=== PATIENT | female | born 1990 | race Caucasian/White ===

== ENCOUNTER 2025-05-17 11:59 | Emergency (ER) | payer OTHER, SELFPAY ==
[2025-05-17 12:08] VITALS: BP 149/97; PULSE 94; TEMP 37.1; O2SAT 98; BMI 31.1
--- NOTE | 2025-05-17 12:16 | XR_ITS ---
The [address] [address] Patient Name: OMA HAYS MRN: [id number] date: 1990 Sex: F Assigned Patient Location: ED.MAIN Current Patient Location: ED.MAIN Accession/Order Number: [id number] Exam Date: 05/17/2025 12:25 Report Date: 05/17/2025 13:41 At the request of: SEBASTIEN ARIAS MD Procedure: XR foot LT min 3V LEFT FOOT - 3 views CLINICAL HISTORY: Pain, known fracture COMPARISON: None FINDINGS: There is soft tissue swelling identified along the forefoot. No definite fracture or dislocation identified. XR/XR foot LT min 3V IMPRESSION: No definite fractures or dislocation.. Moderate forefoot soft tissue swelling. Correlation with prior imaging recommended. Impression dictated by: Jay Jay Issa M.D. 05/17/2025 1:41 PM Dictation Location: [place] [address] Electronically authenticated by: [id number] Y Date: 05/17/2025 13:41
--- NOTE | 2025-05-17 12:16 | XR_ITS ---
The [address] [address] Patient Name: OMA HAYS MRN: [id number] date: 1990 Sex: F Assigned Patient Location: ED.MAIN Current Patient Location: Accession/Order Number: [id number] Exam Date: 05/17/2025 12:25 Report Date: 05/17/2025 14:32 At the request of: SEBASTIEN ARIAS MD Procedure: XR ankle LT min 3V LEFT ANKLE - 3 views CLINICAL HISTORY: Pain, known fractures COMPARISON: None FINDINGS: No acute fractures or dislocation. There is overlapping of the fourth metatarsal base of fifth metatarsal although no definite fracture identified.. Correlate with outside imaging may beneficial. Soft tissues unremarkable. XR/XR ankle LT min 3V IMPRESSION: NO ACUTE OSSEOUS OSSEOUS FINDINGS. Impression dictated by: Jay Jay Issa M.D. 05/17/2025 2:32 PM Dictation Location: [place] [address] Electronically authenticated by: [id number] Y Date: 05/17/2025 14:32
--- NOTE | 2025-05-17 12:17 | ED.GENADUL1 ---
HPI HPI - General Adult General Chief complaint: Extremity Injury, Lower Stated complaint: lower extremity injury 04/11/2025 Time Seen by Provider: 05/17/25 12:09 Source: family Mode of arrival: Wheelchair Limitations: no limitations History of Present Illness HPI narrative: 34-year-old female presented to the emergency department for chief complaint of pain in her left foot and ankle. The patient has known fractures and injured this about 5 weeks ago. He has been seeing an orthopedist in [place] and last saw the orthopedist about 2 weeks ago. She is scheduled for an MRI in August. Related Data Allergies Allergy/AdvReac Type Severity Reaction Status Date / Time epinephrine Allergy Severe Anaphylaxis Verified 05/17/25 12:08 hydromorphone (From Dilaudid) Allergy Severe ITCHING Verified 05/17/25 12:08 ketorolac (From Toradol) Allergy Severe ITCHING Verified 05/17/25 12:08 morphine Allergy Unknown ITCHING Verified 05/17/25 12:08 Opioid HPI Opioid Management Most Recent Opioid Data: Last Pain Scale 10 Today, 12:08 Review of Systems ROS Narrative A ten point review of systems is negative except as noted above. PFSH PFSH Social History Little interest or pleasure in doing things: not at all Feeling down, depressed, or hopeless: not at all Exam Narrative Exam Narrative: Nurses note and vital signs reviewed General:The patient appears well and in no apparent distress.Patient is resting comfortably on cart. Skin:Warm, dry, no pallor noted.There is no rash noted. Head:Normocephalic, atraumatic Eye: Normal conjunctiva, no drainage Ears, Nose, Mouth, and Throat: oral mucosa is moist. Nares patent. Cardiovascular:Regular Rate and Rhythm Respiratory:Patient is in no distress, no accessory muscle use, lungs are clear to auscultation, no wheezing, rales or rhonchi Back:non-tender GI: Soft and nontender Musculoskeletal: There is a splint on the left lower leg. I have removed it. There is no break in the skin. Dorsalis pedis pulse 2+. No calf masses. Neurological:A&O, normal speech Psychiatric:Cooperative Constitutional Vital Signs, click to edit/add: Last Vital Signs Temp 98.8 F 05/17/25 12:08 Pulse 94 H 05/17/25 12:08 Resp 18 05/17/25 12:08 BP 149/97 H 05/17/25 12:08 Pulse Ox 98 05/17/25 12:08 O2 Del Method Room Air 05/17/25 12:08 Course Vital Signs Vital signs: Vital Signs Temperature 98.8 F 05/17/25 12:08 Pulse Rate 94 H 05/17/25 12:08 Respiratory Rate 18 05/17/25 12:08 Blood Pressure 149/97 H 05/17/25 12:08 Pulse Oximetry 98 05/17/25 12:08 Oxygen Delivery Method Room Air 05/17/25 12:08 Temperature 98.8 F 05/17/25 12:08 Pulse Rate 94 H 05/17/25 12:08 Respiratory Rate 18 05/17/25 12:08 Blood Pressure 149/97 H 05/17/25 12:08 Pulse Oximetry 98 05/17/25 12:08 Oxygen Delivery Method Room Air 05/17/25 12:08 Medical Decision Making MDM Narrative Medical decision making narrative: Today's x-rays of foot and ankle show no acute findings. He was advised. His splint was reapplied, application checked by me and found to be appropriate, he is neurovascularly intact. He is seeking a second opinion and was given the name of Dr. Toledo. Treatment diagnosis and follow-up were discussed with the patient. Differential Diagnosis Differential Diagnosis: Foot pain, fracture Imaging Data Foot and ankle x-rays: Radiologist's impression: ITS Impressions Foot X-Ray 05/17/25 12:16 IMPRESSION: No definite fractures or dislocation.. Moderate forefoot soft tissue swelling. Correlation with prior imaging recommended. Impression dictated by: Jay Jay Issa M.D. 05/17/2025 1:41 PM Dictation Location: [place] [address] Electronically authenticated by: [id number] Y Date: 05/17/2025 13:41 Discharge Plan Discharge Chief Complaint: Extremity Injury, Lower Clinical Impression: Foot pain, left Patient Disposition: Home, Self-Care Time of Disposition Decision: 13:53 Condition: Good Mode of Transportation: Private Vehicle Print Language: Cameroonian Instructions: Arthralgia (ED) Referrals: Physician,Non-Staff, MD [Primary Care Provider] - 1 week Klaus Toledo DPM [Physician, Podiatry]
--- OUTSIDE RECORDS SUMMARY | 2025-05-17 12:34 | XMS_ITS | Encounter Summary ---
Author Organization [facility] Address [address], [address] [place] [address] Care Team Providers Care Ecommerce Project Manager Name Role Phone Unavailable Primary Care Provider Unavailabl e Encounter Details DateTypeDepartmentCare Team (Latest Contact Info)Nsgaetqpgbt59/25/2025bstract [facility] Part of [address] [phone] Liliam Esposito MA Social History Tobacco UseTypesPacks/DayYears UsedDateSmoking Tobacco: NeverSmokeless Tobacco: NeverAlcohol UseStandard Drinks/WeekCommentsNot Currently0 (1 standard drink = 0.6 oz pure alcohol)socialAUDIT-CAnswerDate RecordedQ1: How often do you have a drink containing alcohol?Never10/21/2024Q2: How many drinks containing alcohol do you have on a typical day when you are drinking?Patient does not drink 10/21/2024Q3: How often do you have six or more drinks on one occasion?Never 10/21/2024UDIT-CAnswerDate RecordedQ1: How often do you have a drink containing alcohol?Never04/22/2025Q2: How many drinks containing alcohol do you have on a typical day when you are drinking?Patient does not drink04/22/2025Q3: How often do you have six or more drinks on one occasion?Never04/22/2025Interpersonal Safety Domain Source: IP Abuse ScreeningAnswerDate RecordedPhysical abuseDenies 10/21/2024Verbal hhcpsMbdpev90/13/2025Emotional snqweNjhruh29/13/2025Financial kqcibCjcbnp60/13/2025Sexual tpobgAmhrry91/13/2025CommentsNoSex and Gender InformationValueDate RecordedSex Assigned at EzziyQvgncc21/13/2025 10:48 PM EDTLegal KjzGwfc5710/21/2024 10:48 PM EDTGender WkofurnsInsg77/13/2025 10:48 PM EDTSexual OrientationNot on filedocumented as of this encounter Plan of Treatment DateTypeDepartmentCare Team (Latest Contact Info)Iwedjwhcphh01/04/2026 2:40 PM ESTOffice Visit [facility] Part of [address] [phone] Cyndy Linares MD [address] [place] [phone] Referral from PCP Bradycardiadocumented as of this encounter Visit Diagnoses Not on filedocumented in this encounter
--- OUTSIDE RECORDS SUMMARY | 2025-05-17 12:34 | XMS_ITS | Encounter Summary ---
Author Organization [facility] Address [address], [address] [place] [address] Care Team Providers Care Neurophysiological Technician Name Role Phone Unavailable Primary Care Provider Unavailabl e Reason for Referral * Eval and Treat (Routine) - AuthorizedSpecialtyDiagnoses / ProceduresReferred By ContactReferred To ContactCardiovascular Disease / Cardiology Diagnoses Bradycardia Darin Maddox APRN - CNP [address] [place] [address] Phone: tel: fax: Yoseph Juarez MD [address] [place] [address] Phone: tel: fax: Referral IDStatusReasonStart DateExpiration DateVisits RequestedVisits [id number] Specialty Services Required Scheduling Instructions [facility] The patient can be scheduled with any member of the group, including the provider with the first available appointments. Encounter Details DateTypeDepartmentCare Team (Latest Contact Info)Nzyvqxykubl44/25/2025Orders Only [facility] Part of [place] [phone] Darin Maddox APRN - CNP [address] [place] [address] Bradycardia (Primary Dx) Social History Tobacco UseTypesPacks/DayYears UsedDateSmoking Tobacco: NeverSmokeless [...] Source: IP Abuse ScreeningAnswerDate RecordedPhysical abuseDenies 10/21/2024Verbal tfejoUdxvde63/13/2025Emotional fmldnNfxhtk75/13/2025Financial jkluiUxwgts85/13/2025Sexual ncqjnXvejyb98/13/2025CommentsNoSex and Gender InformationValueDate RecordedSex Assigned at TgrwbOdvqzn40/13/2025 10:48 PM EDTLegal WlcCcea1510/21/2024 10:48 PM EDTGender AeeqlvwtEaru41/13/2025 10:48 PM EDTSexual OrientationNot on filedocumented as of this encounter Plan of Treatment DateTypeDepartmentCare Team (Latest Contact Info)Paptfyzbaly82/04/2026 2:40 PM ESTOffice Visit [facility] Part of [address] [phone] Cyndy Linares MD [address] [place] [address] [facility] [place] [address] Referral from PCP BradycardiaNameTypePriorityAssociated DiagnosesOrder Schedule Yoseph [place] MD, Cardiology, [place]inOutpatient ReferralRoutine Bradycardia Ordered: 05/05/2025documented as of this encounter Visit Diagnoses Diagnosis Bradycardia- Primary Other specified cardiac dysrhythmias documented in this encounter
--- OUTSIDE RECORDS SUMMARY | 2025-05-17 12:34 | XMS_ITS | Encounter Summary ---
Author Organization [facility] Address [address], [address] [place] [address] Care Team Providers Care Account Representative Name Role Phone Unavailable Primary Care Provider Unavailabl e Encounter Details DateTypeDepartmentCare Team (Latest Contact Info)Cnfbatvszky71/19/2025Orders Only [facility] Radiology [address] [place] [phone] Darin Maddox, SENIOR CARE PROVIDER - DISPATCH COORDINATOR [address] [place] [phone] Social History Tobacco UseTypesPacks/DayYears UsedDateSmoking Tobacco: NeverSmokeless [...] Source: IP Abuse ScreeningAnswerDate RecordedPhysical abuseDenies 10/21/2024Verbal wnrfzAkxkpl67/13/2025Emotional cduywGvlbzx75/13/2025Financial huwmwWcfrsx15/13/2025Sexual vwplfIylfns43/13/2025CommentsNoSex and Gender InformationValueDate RecordedSex Assigned at DkdjiGqwubm25/13/2025 10:48 PM EDTLegal VrdCxiu4410/21/2024 10:48 PM EDTGender WxreoplsQker48/13/2025 10:48 PM EDTSexual OrientationNot on filedocumented as of this encounter Plan of Treatment DateTypeDepartmentCare Team (Latest Contact Info)Odywolfgvqs71/04/2026 2:40 PM ESTOffice Visit [facility] Part of [address] [phone] Cyndy Linares MD [address] [place] [phone] Referral from PCP Bradycardiadocumented as of this encounter Visit Diagnoses Not on filedocumented in this encounter
--- OUTSIDE RECORDS SUMMARY | 2025-05-17 12:34 | XMS_ITS | Clinical Summary ---
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 Name Role Phone Unavailable Primary Care Provider Unavailabl e Allergies Active AllergyReactionsCriticalityNoted DateCommentsHydromorphoneItching 08/03/20169093ZoikqzguNpfopsah36/23/2017 lips swell up PejxwqxoLaltrnxi13/23/2017 lips swell up Medications MedicationSigDispense QuantityRefillsLast FilledStart DateEnd DateStatus levothyroxine (SYNTHROID) 50 MCG tablet Take 88 mcg by mouth DailyActive acetaminophen (TYLENOL) 500 MG tablet Take 1 tablet by mouth 3 times daily as needed for Pain 30 tablet 12/07/2022ctive Additional Information Patient not taking.Reported on 04/11/2025 lidocaine viscous hcl (XYLOCAINE) 2 % SOLN solution Take 10 mLs by mouth 3 times daily as needed for Irritation 100 mL 12/07/2022ctive Additional Information Patient not taking.Reported on 04/11/2025 naproxen (NAPROSYN) 500 MG tablet Take 1 tablet by mouth 2 times daily for 7 days 14 tablet 5Active ibuprofen (ADVIL;MOTRIN) 600 MG tablet Take 1 tablet by mouth 3 times daily as needed for Pain 30 tablet 5Active HYDROcodone-acetaminophen (NORCO) 5-325 MG per tablet Indications:Closed displaced fracture of anterior process of left calcaneus, initial encounterTake 1 tablet by mouth every 6 hours as needed for Pain for up to 3 days. Intended supply: 3 days. Take lowest dose possible to manage pain Max Daily Amount: 4 tablets 12 tablet Expired Encounters DateTypeDepartmentCare NfufFyzbdknkrzj08/25/2025Orders Only [facility] Part of [address] [phone] Darin Maddox APRN Mary WOOD Bradycardia (Primary Dx)05/05/2025bstract [facility] Part of [address] [phone] Liliam Esposito MA 04/30/2025Transcribe Orders [place] [facility] [address] [place], [place] [id number] Darin Maddox, WATER SOFTENER SERVICER AND INSTALLER - [place]INA Closed nondisplaced fracture of anterior process of left calcaneus, initial encounter (Primary Dx); Sprain of anterior talofibular ligament of left ankle, initial encounter 04/29/2025 6:27 PM EST - 05/01/2025 11:59 PM ESTHospital Encounter [facility] [place] [facility] [address] [place], [place] [id number] Nondisplaced fracture of anterior process of left calcaneus, initial encounter for closed fracture; Pain of left calf; Sprain of other ligament of left ankle, initial encounter Discharge Disposition: Home or Self Care04/29/2025Orders Only [facility] [place] [facility] [address] [place], [place] [id number] Darin Maddox APRN - NINA 04/29/2025Transcribe Orders [facility] [address] [place] [id number] Darin Maddox, WATER SOFTENER SERVICER AND INSTALLER - NINA Nondisplaced fracture of anterior process of left calcaneus, initial encounter for closed fracture (Primary Dx); Pain of left calf; Sprain of other ligament of left ankle, initial snaxlfmqw53/12/2025 9:59 PM EST - 04/22/2025 11:46 PM ESTEmer[facility] [address] [place] [id number] Armando Javier MD Closed displaced fracture of anterior process of left calcaneus, initial encounter (Primary Dx) Discharge Disposition: Home or Self Care04/22/20259099Uvtgti50/07/2025Transcribe Orders [facility] [address] [place] [address] Darin Maddox S, WATER SOFTENER SERVICER AND INSTALLER - HOUSETRAILER SERVICER Sprain of anterior talofibular ligament of left ankle, initial encounter (Primary Dx)04/11/2025 5:04 PM EDT - 04/11/2025 6:08 PM EDTEmerluisana [facility] [address] [place] [address] Sprain of left ankle, unspecified ligament, initial encounter (Primary Dx) Discharge Disposition: Home or Self Care04/11/2025Travelfrom Last 3 Months Social History Tobacco UseTypesPacks/DayYears UsedDateSmoking Tobacco: NeverSmokeless [...] Source: IP Abuse ScreeningAnswerDate RecordedPhysical abuseDenies 10/21/2024Verbal nvwmqVvqnbl33/13/2025Emotional gjmlwLuchid59/13/2025Financial nnvbvJdpphj22/13/2025Sexual hlvvwWzuhjn06/13/2025CommentsNoSex and Gender InformationValueDate RecordedSex Assigned at BrvndXrvfdc38/13/2025 10:48 PM EDTLegal KxjVdyn1910/21/2024 10:48 PM EDTGender EbcgfesgJttq34/13/2025 10:48 PM EDTSexual OrientationNot on file Last Filed Vital Signs Vital SignReadingTime TakenCommentsBlood Sqrfwipg340/7411 9:58 PM EST Aynea502604/22/2025 9:58 PM REAMmwfnghxuna35.5 ??C (97.7 ??F)04/22/2025 9:58 PM ESTRespiratory Vftw054206/22/2024 9:58 PM ESTOxygen Lzwfaglteq59%04/22/2025 9:58 PM ESTInhaled Oxygen Concentration--Cbvnfp73.1 kg (170 lb)04/11/2025 5:08 PM EDT Wqkhoj618.5 cm (5' 2 )04/11/2025 5:08 PM EDTBody Mass Index31.0904/11/2025 5:08 PM EDT Plan of Treatment DateTypeDepartmentCare Team (Latest Contact Info)Tibxvpftokb45/04/2026 2:40 PM ESTOffice Visit [facility] Part of [address] [phone] Cyndy Linares MD [address] [place] [phone] Referral from PCP BradycardiaHealth MaintenanceDue DateLast DoneComments DTaP/Tdap/Td vaccine (6 - Tdap), 02/08/1993, 11/27/1989, Additional history existsDepression Wtrqxo6610/16/2000Varicella vaccine (1 of 2 - 13+ 2-dose series)2001HIV ovcdru1110/17/2003Hepatitis C wxxjqq8410/16/2006 Hepatitis B vaccine (1 of 3 - 19+ 3-dose series)10/17/2007Pap smear2009 Cervical cancer ckznlw8510/16/2018HPV (without or with Pap)2018Flu vaccine (#1)5COVID-19 Vaccine ( - 2023- season)2025Hib vaccine Peevqlbxf66/31/1993, 10/10/1990HPV mcxcogvKocbjwovq75/29/2024, 07/09/2023, 05/08/2023Hepatitis A vaccineAged OutNo longer eligible based on patient's age to complete this topicMeningococcal (ACWY) vaccineAged OutNo longer eligible based on patient's age to complete this topicMeningococcal B vaccineAged OutNo longer eligible based on patient's age to complete this topicPneumococcal 0-49 years VaccineAged OutNo longer eligible based on patient's age to complete this topicPolio vaccineAged OutNo longer eligible based on patient's age to complete this topic Procedures Procedure NamePriorityDate/TimeAssociated DiagnosisCommentsVAS DUP LOWER EXTREMITY VENOUS DBSNGKXM47/19/2025 7:05 PM EST Nondisplaced fracture of anterior process of left calcaneus, initial encounter for closed fracture Pain of left calf Sprain of other ligament of left ankle, initial encounter XR TIBIA FIBULA LEFT (2 VIEWS)04/22/2025 10:40 PM EST XR KNEE LEFT (3 VIEWS)04/22/2025 10:[address] ANKLE LEFT WO MJQRSXEULBHB39/12/2025 10:[address] FOOT LEFT WO HULEEVVPVBQJ00/12/2025 10:30 PM EST XR ANKLE LEFT (MIN 3 VIEWS)04/11/2025 5:20 PM EDT XR FOOT LEFT (MIN 3 VIEWS)04/11/2025 5:20 PM EDT from Last 3 Months Results * Vascular duplex lower extremity venous left (04/29/2025 7:05 PM EST)Anatomical RegionLateralityModalityVascular UltrasoundSpecimen (Source)Anatomical Location / LateralityCollection Method / VolumeCollection TimeReceived Time Narrative 04/30/2025 8:01 AM EST No evidence of acute deep vein or superficial vein thrombosis in the left lower extremity. Vessels demonstrate normal compressibility, color filling, and phasic and spontaneous flow. ?For comparison purposes, the right common femoral vein was briefly interrogated. The vein demonstrates normal color filling and compressibility. Doppler flow was phasic and spontaneous. Right Lower Venous For comparison purposes, the right common femoral vein was briefly interrogated. The vein demonstrates normal color filling and compressibility. Doppler flow was phasic and spontaneous. Left Lower Venous No evidence of acute deep vein or superficial vein thrombosis. The common femoral, saphenofemoral junction, profunda femoral, femoral, popliteal, greater saphenous, and small saphenous veins were imaged in the transverse view and showed normal compressibility. The common femoral, popliteal, and middle femoral veins were imaged in the longitudinal view and showed normal color filling and normal phasic and spontaneous flow. Gastrocnemius Vein: Patent, compressible. Posterior Tibial Vein: Patent, compressible. Peroneal Vein: Patent, compressible. Parking Control Officer Details A so scale, color Doppler imaging and spectral Doppler analysis ultrasound was performed. During the study longitudinal and transverse views were obtained. Pulsed wave doppler was performed. Overall the study quality was good. Authorizing ProviderResult TypeResult StatusBralor Maddox WATER SOFTENER SERVICER AND INSTALLER - CNPCV VASCULAR ORDERABLESFinal Result * XR TIBIA FIBULA LEFT (2 VIEWS) (04/22/2025 10:40 PM EST)Anatomical Region LateralityModalityLeg, Knee, AnkleComputed RadiographySpecimen (Source) Anatomical Location / LateralityCollection Method / VolumeCollection Time Received Time04/22/2025 10:54 PM EST Impressions 04/22/2025 10:55 PM EST 1. No acute findings. Narrative 04/22/2025 10:55 PM EST EXAM: 2 VIEW(S) XRAY OF THE LEFT TIBIA AND FIBULA 04/22/2025 10:40:50 PM COMPARISON: None available. CLINICAL HISTORY: Pain. FINDINGS: BONES AND JOINTS: No acute fracture. No focal osseous lesion. No joint dislocation. SOFT TISSUES: The soft tissues are unremarkable. Procedure Note Naz Chavis MD - 04/22/2025 EXAM: 2 VIEW(S) XRAY OF THE LEFT TIBIA AND FIBULA 04/22/2025 10:40:50 PM COMPARISON: None available. CLINICAL HISTORY: Pain. FINDINGS: BONES AND JOINTS: No acute fracture. No focal osseous lesion. No joint dislocation. SOFT TISSUES: The soft tissues are unremarkable. IMPRESSION: 1. No acute findings. Authorizing ProviderResult TypeResult StatusIlya Kott MDVETERANS [facility] [place]AGING ORDERABLESFinal Result * XR KNEE LEFT (3 VIEWS) (04/22/2025 10:40 PM EST)Anatomical RegionLaterality ModalityThigh, Knee, LegComputed RadiographySpecimen (Source)Anatomical Location / LateralityCollection Method / VolumeCollection TimeReceived Time 04/22/2025 10:53 PM EST Impressions 04/22/2025 10:53 PM EST Normal left knee radiographs Narrative 04/22/2025 10:53 PM EST EXAMINATION: THREE XRAY VIEWS OF THE LEFT KNEE 04/22/2025 10:40 pm COMPARISON: None. HISTORY: ORDERING SYSTEM PROVIDED HISTORY: Pain TECHNOLOGIST PROVIDED HISTORY: Pain FINDINGS: No acute fracture or dislocation of the left knee. ??No arthritic change or suprapatellar effusion. Procedure Note Lucas Morfin MD - 04/22/2025 EXAMINATION: THREE XRAY VIEWS OF THE LEFT KNEE 04/22/2025 10:40 pm COMPARISON: None. HISTORY: ORDERING SYSTEM PROVIDED HISTORY: Pain TECHNOLOGIST PROVIDED HISTORY: Pain FINDINGS: No acute fracture or dislocation of the left knee. No arthritic changeor suprapatellar effusion. IMPRESSION: Normal left knee radiographs Authorizing ProviderResult TypeResult Allen Javier MDDariela DIAGNOSTIC IMAGING ORDERABLESFinal Result * CT ANKLE LEFT WO CONTRAST (04/22/2025 10:31 PM EST)Anatomical RegionLaterality ModalityLeg, Ankle, FootComputed TomographySpecimen (Source)Anatomical Location / LateralityCollection Method / VolumeCollection TimeReceived Time 04/22/2025 10:55 PM EST Impressions 04/22/2025 11:03 PM EST 1. Mildly displaced fracture of the anterior process of the calcaneus. 2. Subtle cortical irregularity of the dorsal navicula suggests sequela of prior injury versus subtle nondisplaced fracture/avulsion. Narrative 04/22/2025 11:03 PM EST EXAMINATION: CT OF THE LEFT ANKLE WITHOUT CONTRAST 04/22/2025 7:23 pm TECHNIQUE: CT of the left ankle was performed without the administration of intravenous contrast. ??Multiplanar reformatted images are provided for review. Automated exposure control, iterative reconstruction, and/or weight based adjustment of the mA/kV was utilized to reduce the radiation dose to as low as reasonably achievable. COMPARISON: Left ankle radiographs April 11, 2025. HISTORY ORDERING SYSTEM PROVIDED HISTORY: Pain TECHNOLOGIST PROVIDED HISTORY: Pain Decision Support Exception - unselect if not a suspected or confirmed emergency medical condition->Emergency Medical Condition ([place]) Is the patient ?->No FINDINGS: Bones: Mildly displaced fracture of the anterior process of the calcaneus. Cortical irregularity of the dorsal navicula. ??The distal tibia demonstrates mild arthritic spurring of the anterior plafond and and is otherwise intact. The talar dome is intact. ??No additional fracture visualized. ??No dislocation. ??No aggressive appearing osseous abnormality or periostitis. Soft Tissue: Mild soft tissue edema of the dorsal and lateral soft tissues of the ankle and hindfoot. ??Small Achilles tendon enthesopathy. ??Unremarkable CT appearance of the visualized muscles. ??The visualized flexor and extensor tendons appear intact. Joint: The joint spaces are grossly maintained. ??No significant erosive change. Procedure Note Genie Monteiro MD - 04/22/2025 EXAMINATION: CT OF THE LEFT ANKLE WITHOUT CONTRAST 04/22/2025 7:23 pm TECHNIQUE: CT of the left ankle was performed without the administration ofintravenous contrast. Multiplanar reformatted images are provided for review.Automated exposure control, iterative reconstruction, and/or weight based adjustmentof the mA/kV was utilized to reduce the radiation dose to as low asreasonably achievable. COMPARISON: Left ankle radiographs April 11, 2025. HISTORY ORDERING SYSTEM PROVIDED HISTORY: Pain TECHNOLOGIST PROVIDED HISTORY: Pain Decision Support Exception - unselect if not a suspected or confirmed emergency medical condition->Emergency Medical Condition (MA) Is the patient ?->No FINDINGS: Bones: Mildly displaced fracture of the anterior process of thecalcaneus. Cortical irregularity of the dorsal navicula. The distal tibiademonstrates mild arthritic spurring of the anterior plafond and and is otherwiseintact. The talar dome is intact. No additional fracture visualized. No dislocation. No aggressive appearing osseous abnormality orperiostitis. Soft Tissue: Mild soft tissue edema of the dorsal and lateral soft tissuesof the ankle and hindfoot. Small Achilles tendon enthesopathy. UnremarkableCT appearance of the visualized muscles. The visualized flexor andextensor tendons appear intact. Joint: The joint spaces are grossly maintained. No significant erosive change. IMPRESSION: 1. Mildly displaced fracture of the anterior process of the calcaneus. 2. Subtle cortical irregularity of the dorsal navicula suggests sequelaof prior injury versus subtle nondisplaced fracture/avulsion. Authorizing ProviderResult TypeResult StatusArmando Javier MDIMG CT ORDERABLESFinal Result * CT FOOT LEFT WO CONTRAST (04/22/2025 10:30 PM EST)Anatomical RegionLaterality ModalityHip, Thigh, KneeComputed TomographySpecimen (Source)Anatomical Location / LateralityCollection Method / VolumeCollection TimeReceived Time 04/22/2025 10:47 PM EST Impressions 04/22/2025 10:54 PM EST 1. No acute osseous abnormality of the left foot. 2. Soft tissue swelling over the plantar aspect of the entire foot. ??No joint effusion. ??No fluid collection. Narrative 04/22/2025 10:54 PM EST EXAMINATION: CT OF THE LEFT FOOT WITHOUT CONTRAST 04/22/2025 10:22 pm TECHNIQUE: CT of the left foot was performed without the administration of intravenous contrast. ??Multiplanar reformatted images are provided for review. Automated exposure control, iterative reconstruction, and/or weight based adjustment of the mA/kV was utilized to reduce the radiation dose to as low as reasonably achievable. COMPARISON: None. HISTORY ORDERING SYSTEM PROVIDED HISTORY: Pain TECHNOLOGIST PROVIDED HISTORY: Pain Decision Support Exception - unselect if not a suspected or confirmed emergency medical condition->Emergency Medical Condition (MA) Is the patient ?->No FINDINGS: Bones: No evidence of acute fracture or dislocation. No aggressive appearing osseous abnormality or periostitis. ??Bony alignment is normal. Soft Tissue: No fluid collections. ??There is soft tissue swelling over the plantar aspect of the entire foot. Joint: The Lisfranc joints are maintained. ??No joint effusion. Procedure Note Sue Jimenez MD - 04/22/2025 EXAMINATION: CT OF THE LEFT FOOT WITHOUT CONTRAST 04/22/2025 10:22 pm TECHNIQUE: CT of the left foot was performed without the administration ofintravenous contrast. Multiplanar reformatted images are provided for review.Automated exposure control, iterative reconstruction, and/or weight based adjustmentof the mA/kV was utilized to reduce the radiation dose to as low asreasonably achievable. COMPARISON: None. HISTORY ORDERING SYSTEM PROVIDED HISTORY: Pain TECHNOLOGIST PROVIDED HISTORY: Pain Decision Support Exception - unselect if not a suspected or confirmed emergency medical condition->Emergency Medical Condition (MA) Is the patient ?->No FINDINGS: Bones: No evidence of acute fracture or dislocation. No aggressiveappearing osseous abnormality or periostitis. Bony alignment is normal. Soft Tissue: No fluid collections. There is soft tissue swelling overthe plantar aspect of the entire foot. Joint: The Lisfranc joints are maintained. No joint effusion. IMPRESSION: 1. No acute osseous abnormality of the left foot. 2. Soft tissue swelling over the plantar aspect of the entire foot. Nojoint effusion. No fluid collection. Authorizing ProviderResult TypeResult StatusIlymilka Javier [facility] CT ORDERABLESFinal Result * XR ANKLE LEFT (MIN 3 VIEWS) (04/11/2025 5:20 PM EDT)Anatomical Region LateralityModalityLeg, Ankle, FootComputed RadiographySpecimen (Source) Anatomical Location / LateralityCollection Method / VolumeCollection Time Received Time04/11/2025 5:37 PM EDT Impressions 04/11/2025 5:39 PM EDT LEFT ANKLE: No acute fracture or dislocation. LEFT FOOT: Mild soft tissue swelling on the forefoot. No acute fracture or dislocation. RECOMMENDATION: Follow-up studies as clinically indicated. Narrative 04/11/2025 5:39 PM EDT EXAMINATION: THREE XRAY VIEWS OF THE LEFT ANKLE; THREE XRAY VIEWS OF THE LEFT FOOT 04/11/2025 5:20 pm COMPARISON: None. HISTORY: ORDERING SYSTEM PROVIDED HISTORY: washer fell on foot TECHNOLOGIST PROVIDED HISTORY: washer fell on foot FINDINGS: Left ankle: Three views of the left ankle demonstrate adequate mineralization and alignment without acute fracture, dislocation or localized soft tissue swelling. ??Ankle mortise is uniform. ??Talar dome and talar morales are intact. Left foot: Mineralization and alignment are satisfactory. ??Mild soft tissue swelling on the forefoot is noted. ??No acute fracture, dislocation or radiopaque foreign body is noted. ??No significant degenerative change. LisFranc relationship is preserved. Procedure Note Shayy Osorio MD - 04/11/2025 EXAMINATION: THREE XRAY VIEWS OF THE LEFT ANKLE; THREE XRAY VIEWS OF THE LEFT FOOT 04/11/2025 5:20 pm COMPARISON: None. HISTORY: ORDERING SYSTEM PROVIDED HISTORY: washer fell on foot TECHNOLOGIST PROVIDED HISTORY: washer fell on foot FINDINGS: Left ankle: Three views of the left ankle demonstrate adequatemineralization and alignment without acute fracture, dislocation or localized softtissue swelling. Ankle mortise is uniform. Talar dome and talar morales areintact. Left foot: Mineralization and alignment are satisfactory. Mild softtissue swelling on the forefoot is noted. No acute fracture, dislocation or radiopaque foreign body is noted. No significant degenerative change. LisFranc relationship is preserved. IMPRESSION: LEFT ANKLE: No acute fracture or dislocation. LEFT FOOT: Mild soft tissue swelling on the forefoot. No acute fracture ordislocation. RECOMMENDATION: Follow-up studies as clinically indicated. Authorizing ProviderResult TypeResult StatusStephen N Reese [facility] DIAGNOSTIC IMAGING ORDERABLESFinal Result * XR FOOT LEFT (MIN 3 VIEWS) (04/11/2025 5:20 PM EDT)Anatomical RegionLaterality ModalityFoot, AnkleComputed RadiographySpecimen (Source)Anatomical Location / LateralityCollection Method / VolumeCollection TimeReceived Time04/11/2025 5:37 PM EDT Impressions 04/11/2025 5:39 PM EDT LEFT ANKLE: No acute fracture or dislocation. LEFT FOOT: Mild soft tissue swelling on the forefoot. No acute fracture or dislocation. RECOMMENDATION: Follow-up studies as clinically indicated. Narrative 04/11/2025 5:39 PM EDT EXAMINATION: THREE XRAY VIEWS OF THE LEFT ANKLE; THREE XRAY VIEWS OF THE LEFT FOOT 04/11/2025 5:20 pm COMPARISON: None. HISTORY: ORDERING SYSTEM PROVIDED HISTORY: washer fell on foot TECHNOLOGIST PROVIDED HISTORY: washer fell on foot FINDINGS: Left ankle: Three views of the left ankle demonstrate adequate mineralization and alignment without acute fracture, dislocation or localized soft tissue swelling. ??Ankle mortise is uniform. ??Talar dome and talar morales are intact. Left foot: Mineralization and alignment are satisfactory. ??Mild soft tissue swelling on the forefoot is noted. ??No acute fracture, dislocation or radiopaque foreign body is noted. ??No significant degenerative change. LisFranc relationship is preserved. Procedure Note Shayy Osorio MD - 04/11/2025 EXAMINATION: THREE XRAY VIEWS OF THE LEFT ANKLE; THREE XRAY VIEWS OF THE LEFT FOOT 04/11/2025 5:20 pm COMPARISON: None. HISTORY: ORDERING SYSTEM PROVIDED HISTORY: washer fell on foot TECHNOLOGIST PROVIDED HISTORY: washer fell on foot FINDINGS: Left ankle: Three views of the left ankle demonstrate adequatemineralization and alignment without acute fracture, dislocation or localized softtissue swelling. Ankle mortise is uniform. Talar dome and talar morales areintact. Left foot: Mineralization and alignment are satisfactory. Mild softtissue swelling on the forefoot is noted. No acute fracture, dislocation or radiopaque foreign body is noted. No significant degenerative change. LisFranc relationship is preserved. IMPRESSION: LEFT ANKLE: No acute fracture or dislocation. LEFT FOOT: Mild soft tissue swelling on the forefoot. No acute fracture ordislocation. RECOMMENDATION: Follow-up studies as clinically indicated. Authorizing ProviderResult TypeResult StatusStepemma Leigh [facility] DIAGNOSTIC IMAGING ORDERABLESFinal Result from Last 3 Months Insurance
[2025-05-17] MEDS: ONDANSETRON 4 MG RAPDIS TABLET SL (13:22)
== END 2025-05-17 14:10 | disposition home or self-care (01) ==
PROVIDERS: Emergency Provider Emergency Medicine
DX: M79.672 Pain in left foot (principal)
CPT/HCPCS: 73610; 73630; 99283; Q0162